=== PATIENT | male | born 1955 | race Caucasian/White ===

== ENCOUNTER 2020-02-02 09:58 | Outpatient (CLI) | payer MEDICARE, OTHER, SELFPAY ==
--- NOTE | ~2020-02-02 | XR_ITS ---
XR chest 2V DATE: 02/02/2020 11:08 INDICATION: Amiodarone therapy TECHNIQUE: PA and lateral views COMPARISON: 08/01/2018 two-view chest FINDINGS: Normal heart size. No hilar or mediastinal enlargement. No pulmonary infiltrate or consolid ation, pleural effusion or pulmonary vascular congestion or pneumothorax. Dextroscoliosis and degenerative spurring of the thoracic spine. There is evidence of chronic ravinder rebecca fracture deformities of the thoracic spine. IMPRESSION: No active cardiopulmonary disease Reviewed, dictated and finalized at location B. ANALYST
--- NOTE | 2020-02-03 11:16 | WPDPFTINT ---
PFT Interpretation PFT Interpretation: This PFT met all criteria for ATS standards and reproducibility FEV/FVC post bronchodilator 73% of predicted FEV1 81% of predicted FVC 77% of predicted TLC 92% of predicted RV 105% RV/TLC 43% DLCO 89% of predicted when adjusted for alveolar volume but not adjusted for hemoglobin Flow volume loops showed some end expiratory coving Impression: Possible small airway obstruction. Would recommend repeating with bronchodilator challenge or methacholine challenge testing if clinically indicated.
== END 2020-02-02 09:59 | disposition home or self-care (01) ==
PROVIDERS: PCP Family Medicine; Visit Provider Internal Medicine Cardiovascular Disease
DX: Z91.89 Other specified personal risk factors, not elsewhere classified (principal); Z79.899 Other long term (current) drug therapy
CPT/HCPCS: 71046; 94375; 94726; 94729

== ENCOUNTER 2020-02-07 08:32 | Outpatient (CLI) | payer MEDICARE, OTHER, SELFPAY ==
[2020-02-07 09:44] LABS: Thyroid Stimulating Hormone 0.515 uIU/mL (0.465-4.680)
[2020-02-07 09:51] LABS: Free T4 Free Thyroxine 1.97 ng/mL (0.78-2.19)
== END 2020-02-07 08:33 | disposition home or self-care (01) ==
PROVIDERS: PCP Family Medicine; Visit Provider Internal Medicine Cardiovascular Disease
DX: Z91.89 Other specified personal risk factors, not elsewhere classified (principal); Z79.899 Other long term (current) drug therapy
CPT/HCPCS: 36415; 84439; 84443

== ENCOUNTER 2020-06-05 07:27 | Outpatient (CLI) | payer MEDICARE, OTHER, SELFPAY ==
[2020-06-05 07:51] LABS: Basophils Absolute Auto 0.2 K/mm3 (0.0-0.1); Basophils Percent Auto 1.4 % (0.2-1.2); Eosinophils Absolute Auto 0.3 K/mm3 (0-0.3); Eosinophils Percent Auto 2.7 % (0-4.4); Hematocrit 52.2 % (42.0-52.0); Immature Granulocyte Absolute 0.07 K/mm3 (0.00-0.031); Immature Granulocyte Percent A 0.7 % (0-0.5); Lymphocytes Absolute Auto 2.34 K/mm3 (0.9-3.2); Lymphocytes Percent Auto 22.2 % (18.3-44.2); Mean Corpuscular HGB Conc 34.5 g/dl (32-36); Mean Corpuscular Hemoglobin 31.2 pg (26-34); Mean Corpuscular Volume 90.5 fl (80-100); Monocytes Absolute Auto 0.9 K/mm3 (0.1-0.6); Monocytes Percent Auto 8.9 % (2.6-8.5); Neutrophils Absolute Auto 6.8 K/mm3 (1.3-6.7); Neutrophils Percent Auto 64.1 % (45.5-73.1); Platelet Count Result 291 k/mm3 (150-375); Red Blood Count 5.77 M/mm3 (4.6-6.20); Red Cell Distribution Width 12.1 % (11.5-14.5); White Blood Count 10.5 K/mm3 (4.5-10.0)
[2020-06-05 08:00] LABS: Hemoglobin A1C 9.5 % (<5.7)
[2020-06-05 08:30] LABS: Creatinine Urine 249.1 mg/dL
[2020-06-05 08:34] LABS: MALB Creatinine Ratio 3.2 mg/g (0-30); Microalbumin Urine Random 7.9 mg/L (0-16.7)
[2020-06-05 08:58] LABS: Alanine Aminotransferase 39 U/L (4-50); Albumin Level 4.5 g/dL (3.5-5.1); Alkaline Phosphatase 96 U/L (38-126); Aspartate Amino Transferase 34 U/L (17-59); Bilirubin,Total 0.8 mg/dL (0.2-1.3); Blood Urea Nitrogen 23 mg/dL (9-20); Calcium 9.5 mg/dL (8.4-10.2); Carbon Dioxide 26 mmol/L (22-30); Chloride 100 mmol/L (98-107); Cholesterol 230 mg/dL (0-200); Estimated Glomerular Filt Rate 55; Glucose 219 mg/dL (75-110); HDL Direct 39 mg/dL; Potassium 4.7 mmol/L (3.4-5.0); Sodium 137 mmol/L (137-145); Triglycerides 154 mg/dL (<150)
[2020-06-05 09:00] LABS: Iron 152 ug/dL (49-181)
[2020-06-05 09:10] LABS: Percent Iron Saturation 43 % (20-50)
[2020-06-05 09:38] LABS: LDL Cholesterol Direct 165 mg/dL
[2020-06-05 09:53] LABS: Free T4 Free Thyroxine 2.19 ng/mL (0.78-2.19)
[2020-06-05 10:06] LABS: Prostate Specific Antigen 0.9 ng/mL (< OR = 4.0)
== END 2020-06-05 07:28 | disposition home or self-care (01) ==
PROVIDERS: PCP Family Medicine; Visit Provider Family Medicine
DX: D64.9 Anemia, unspecified (principal); E11.9 Type 2 diabetes mellitus without complications; E03.9 Hypothyroidism, unspecified; Z12.5 Encounter for screening for malignant neoplasm of prostate
CPT/HCPCS: 36415; 80053; 80061; 82043; 83036; 83540; 83550; 84153; 84439; 84443; 84481; 85025; G0103

== ENCOUNTER 2020-09-18 07:37 | Outpatient (CLI) | payer MEDICARE, OTHER, SELFPAY ==
[2020-09-18 08:06] LABS: Alanine Aminotransferase 56 U/L (4-50); Aspartate Amino Transferase 41 U/L (17-59); Cholesterol 125 mg/dL (0-200); HDL Direct 38 mg/dL; Triglycerides 101 mg/dL (<150)
[2020-09-18 08:14] LABS: LDL Cholesterol Direct 66 mg/dL
== END 2020-09-18 07:38 | disposition home or self-care (01) ==
PROVIDERS: PCP Family Medicine; Visit Provider Internal Medicine Cardiovascular Disease
DX: E78.5 Hyperlipidemia, unspecified (principal); E11.69 Type 2 diabetes mellitus with other specified complication
CPT/HCPCS: 36415; 80061; 84450; 84460

== ENCOUNTER 2021-02-13 10:00 | Outpatient (CLI) | payer MEDICARE, OTHER, SELFPAY ==
--- NOTE | 2021-02-13 12:30 | WPDPFTINT ---
PFT Interpretation This is a pulmonary function test with spirometry, plethysmography and diffusing capacity. The test was performed and results interpreted in accordance with the 2019 and 2005 ATS/ERS Task Force guidelines respectively using the Global Lung Function Initiative-2012 reference equations. Patient demonstrated good effort and cooperation. Reproducibility criteria were suspect. The quality of the spirometry maneuver was Grade D. Findings: Spirometry: The contour the inspiratory and expiratory flow tracing are normal. The FVC is 3.85 L, 91% predicted. The FEV1 is 2.75 L, 85% predicted. The FEV1: FVC ratio 72%. Plethysmography: The total lung capacity is 6.31 L, 93% predicted. The functional residual capacity is 3.01 L, 84% predicted. The residual volume is 2.46 L, 107% predicted. Diffusing capacity: The absolute diffusion capacity is 20.6, 77% predicted. The diffusing capacity corrected for alveolar volume is 3.57, 87% predicted. In comparison to previous pulmonary function test on 02/02/2020 the FVC has increased from 3.35 L to 3.85 L. The FEV1 has increased from 2.43 L to 2.75 L. the total lung capacity is unchanged from 5.86 L to 6.31 L. The functional residual capacity is decreased from 3.74 L to 3.01 L. The residual volume has is unchanged from 2.51L to 2.46 L. The absolute diffusion capacity is unchanged from 20.1 to 20.6. The diffusing capacity corrected for alveolar volume is unchanged from 4.01 to 3.57. Impression: The spirometry is normal without evidence of an obstructive abnormality. The lung volumes are normal. The diffusing capacity is normal. In comparison to previous pulmonary function test on 02/02/2020 there has been a greater than anticipated time dependent increase in FVC and FEV1 with no change in total lung capacity, residual volume, absolute diffusion capacity and diffusing capacity corrected for alveolar volume. There has been a greater than anticipated time dependent decrease in functional residual capacity. Clinical correlation is recommended.
== END 2021-02-13 10:01 | disposition home or self-care (01) ==
PROVIDERS: PCP Family Medicine; Referring Provider Family Medicine; Visit Provider Internal Medicine Cardiovascular Disease
DX: Z91.89 Other specified personal risk factors, not elsewhere classified (principal); Z79.899 Other long term (current) drug therapy
CPT/HCPCS: 94375; 94726; 94729

== ENCOUNTER 2021-02-19 07:10 | Outpatient (CLI) | payer MEDICARE, OTHER, SELFPAY ==
[2021-02-19 08:07] LABS: Alanine Aminotransferase 36 U/L (4-50); Albumin Level 4.3 g/dL (3.5-5.1); Alkaline Phosphatase 85 U/L (38-126); Anion Gap 8 mmol/L (8-16); Aspartate Amino Transferase 33 U/L (17-59); Bilirubin,Total 0.9 mg/dL (0.2-1.3); Blood Urea Nitrogen 24 mg/dL (9-20); Calcium 9.4 mg/dL (8.4-10.2); Carbon Dioxide 27 mmol/L (22-30); Chloride 105 mmol/L (98-107); Estimated Glomerular Filt Rate > 60; Glucose 134 mg/dL (75-110); Potassium 4.2 mmol/L (3.4-5.0); Sodium 140 mmol/L (137-145)
[2021-02-19 08:35] LABS: Thyroid Stimulating Hormone 0.342 uIU/mL (0.465-4.680)
[2021-02-19 08:36] LABS: Free T4 Free Thyroxine 2.37 ng/mL (0.78-2.19)
== END 2021-02-19 07:11 | disposition home or self-care (01) ==
PROVIDERS: PCP Family Medicine; Visit Provider Internal Medicine Cardiovascular Disease
DX: Z51.81 Encounter for therapeutic drug level monitoring (principal); Z79.899 Other long term (current) drug therapy; Z91.89 Other specified personal risk factors, not elsewhere classified
CPT/HCPCS: 36415; 80053; 84439; 84443

== ENCOUNTER 2021-02-26 07:08 | Outpatient (CLI) | payer MEDICARE, OTHER, SELFPAY ==
--- NOTE | ~2021-02-26 | XR_ITS ---
EXAMINATION: XR chest 2V EXAM DATE: 02/26/2021 07:31 INDICATION: At risk for amiodarone toxicity, long-term use. TECHNIQUE: Frontal and lateral projections of the chest obtained and reviewed. Comparison is made to prior examination from 02/02/2020. FINDINGS: The lungs are clear. There are no pleural effusions. The cardiomediastinal silhouette is within normal limits. There is no pneumothorax suspected. There is mild thoracic dextroscoliosis. IMPRESSION: Clear lungs. Reviewed, dictated and finalized at location A. IMPRESSION: Clear lungs.
== END 2021-02-26 07:09 | disposition home or self-care (01) ==
LOC: ANHIMG 07:12
PROVIDERS: PCP Family Medicine; Visit Provider Internal Medicine Cardiovascular Disease
DX: Z91.89 Other specified personal risk factors, not elsewhere classified (principal); Z79.899 Other long term (current) drug therapy
CPT/HCPCS: 71046

== ENCOUNTER 2021-05-20 07:24 | Outpatient (CLI) | payer MEDICARE, OTHER, SELFPAY ==
[2021-05-20 08:20] LABS: Basophils Absolute Auto 0.1 K/mm3 (0.0-0.1); Basophils Percent Auto 1.4 % (0.2-1.2); Eosinophils Absolute Auto 0.3 K/mm3 (0-0.3); Eosinophils Percent Auto 3.1 % (0-4.4); Hematocrit 50.8 % (42.0-52.0); Hemoglobin 17.2 g/dL (14.0-18.0); Immature Granulocyte Absolute 0.03 K/mm3 (0.00-0.031); Immature Granulocyte Percent A 0.3 % (0-0.5); Lymphocytes Absolute Auto 2.14 K/mm3 (0.9-3.2); Lymphocytes Percent Auto 23.6 % (18.3-44.2); Mean Corpuscular HGB Conc 33.9 g/dl (32-36); Mean Corpuscular Hemoglobin 31.2 pg (26-34); Mean Corpuscular Volume 92.2 fl (80-100); Monocytes Absolute Auto 0.8 K/mm3 (0.1-0.6); Monocytes Percent Auto 8.4 % (2.6-8.5); Neutrophils Absolute Auto 5.7 K/mm3 (1.3-6.7); Neutrophils Percent Auto 63.2 % (45.5-73.1); Platelet Count Result 285 k/mm3 (150-375); Red Blood Count 5.51 M/mm3 (4.6-6.20); Red Cell Distribution Width 12.2 % (11.5-14.5); White Blood Count 9.1 K/mm3 (4.5-10.0)
[2021-05-20 08:31] LABS: Cholesterol 148 mg/dL (0-200); HDL Direct 50 mg/dL; Triglycerides 74 mg/dL (<150)
[2021-05-20 08:41] LABS: Hemoglobin A1C 7.5 % (<5.7)
[2021-05-20 08:42] LABS: LDL Cholesterol Direct 67 mg/dL
[2021-05-20 08:58] LABS: Creatinine Urine 225.4 mg/dL
[2021-05-20 09:02] LABS: MALB Creatinine Ratio 2.8 mg/g (0-30); Microalbumin Urine Random 6.4 mg/L (0-16.7)
[2021-05-20 09:13] LABS: Free T4 Free Thyroxine 1.96 ng/mL (0.78-2.19)
== END 2021-05-20 07:25 | disposition home or self-care (01) ==
PROVIDERS: PCP Family Medicine; Visit Provider Internal Medicine Cardiovascular Disease
DX: E11.9 Type 2 diabetes mellitus without complications (principal); D64.9 Anemia, unspecified; Z79.899 Other long term (current) drug therapy; Z91.89 Other specified personal risk factors, not elsewhere classified
CPT/HCPCS: 36415; 80061; 82043; 83036; 84439; 84443; 85025

== ENCOUNTER 2022-02-20 07:18 | Outpatient (CLI) | payer MEDICARE, OTHER, SELFPAY ==
[2022-02-20 07:53] LABS: Basophils Absolute Auto 0.2 K/mm3 (0.0-0.1); Basophils Percent Auto 1.5 % (0.2-1.2); Eosinophils Absolute Auto 0.6 K/mm3 (0-0.3); Eosinophils Percent Auto 6.2 % (0-4.4); Hematocrit 49.5 % (42.0-52.0); Hemoglobin 17.1 g/dL (14.0-18.0); Immature Granulocyte Absolute 0.04 K/mm3 (0.00-0.031); Immature Granulocyte Percent A 0.4 % (0-0.5); Lymphocytes Absolute Auto 2.36 K/mm3 (0.9-3.2); Lymphocytes Percent Auto 24.1 % (18.3-44.2); Mean Corpuscular HGB Conc 34.5 g/dl (32-36); Mean Corpuscular Hemoglobin 31.8 pg (26-34); Mean Platelet Volume 10.9 fl (7.4-10.4); Monocytes Absolute Auto 0.9 K/mm3 (0.1-0.6); Monocytes Percent Auto 8.8 % (2.6-8.5); Neutrophils Absolute Auto 5.8 K/mm3 (1.3-6.7); Platelet Count Result 245 k/mm3 (150-375); Red Blood Count 5.38 M/mm3 (4.6-6.20); Red Cell Distribution Width 12.2 % (11.5-14.5); White Blood Count 9.8 K/mm3 (4.5-10.0)
[2022-02-20 08:04] LABS: Alanine Aminotransferase 40 U/L (4-50); Albumin Level 4.4 g/dL (3.5-5.1); Alkaline Phosphatase 92 U/L (38-126); Anion Gap 5 mmol/L (8-16); Aspartate Amino Transferase 35 U/L (17-59); Bilirubin,Total 1.3 mg/dL (0.2-1.3); Blood Urea Nitrogen 25 mg/dL (9-20); Carbon Dioxide 32 mmol/L (22-30); Chloride 101 mmol/L (98-107); Cholesterol 141 mg/dL (0-200); Estimated Glomerular Filt Rate 51; Glucose 171 mg/dL (65-110); HDL Direct 41 mg/dL; Potassium 4.5 mmol/L (3.4-5.0); Sodium 138 mmol/L (137-145); Triglycerides 94 mg/dL (<150)
[2022-02-20 08:07] LABS: Hemoglobin A1C 7.4 % (<5.7)
[2022-02-20 08:16] LABS: LDL Cholesterol Direct 75 mg/dL
[2022-02-20 08:19] LABS: Creatinine Urine 176.4 mg/dL
[2022-02-20 08:35] LABS: Free T4 Free Thyroxine 1.82 ng/mL (0.78-2.19)
[2022-02-20 08:54] LABS: MALB Creatinine Ratio < 3.4 mg/g (0-30); Microalbumin Urine Random < 6.0 mg/L (0-16.7)
== END 2022-02-20 07:19 | disposition home or self-care (01) ==
PROVIDERS: PCP Family Medicine; Referring Provider Internal Medicine Cardiovascular Disease; Visit Provider Family Medicine
DX: E03.9 Hypothyroidism, unspecified (principal); E11.9 Type 2 diabetes mellitus without complications; D64.9 Anemia, unspecified
CPT/HCPCS: 36415; 80053; 80061; 82043; 83036; 84439; 84443; 85025

== ENCOUNTER 2022-03-04 08:35 | Outpatient (CLI) | payer MEDICARE, OTHER, SELFPAY ==
--- NOTE | ~2022-03-04 | XR_ITS ---
EXAMINATION: XR chest 2V DATE: 03/04/2022 08:51 INDICATION: Long-term amiodarone use. At risk for toxicity. TECHNIQUE: Frontal and lateral views of the chest were obtained. COMPARISON: Chest 2 views 02/26/2021, CT abdomen and pelvis 12/15/2016 FINDINGS: The chest demonstrates clear lungs without pneumonia, pleural effusion, or pneumothorax. Th e heart size is normal. IMPRESSION: 1. No evidence of chronic interstitial lung disease. Reviewed, dictated and finalized at location A.
== END 2022-03-04 08:36 | disposition home or self-care (01) ==
LOC: ANHIMG 08:38
PROVIDERS: PCP Family Medicine; Visit Provider Internal Medicine Cardiovascular Disease
DX: Z51.81 Encounter for therapeutic drug level monitoring (principal); Z79.899 Other long term (current) drug therapy
CPT/HCPCS: 71046

== ENCOUNTER 2023-02-26 07:46 | Outpatient (CLI) | payer MEDICARE, OTHER, SELFPAY ==
--- NOTE | ~2023-02-26 | XR_ITS ---
Clinical Indication: Amiodarone therapy PA and lateral views of the chest: Comparison: 03/04/2022 Findings: The lungs are clear, without evidence of focal consolidation or pleural effusion. Cardiome diastinal silhouette is within normal limits. Bones and soft tissues are unremarkable. Impression: Normal chest. Reviewed, dictated and finalized at location . Impression: Normal chest.
[2023-02-26 08:40] LABS: Alanine Aminotransferase 36 U/L (6-50); Albumin Level 4.4 g/dL (3.5-5.1); Alkaline Phosphatase 103 U/L (38-126); Anion Gap 8 mmol/L (8-16); Aspartate Amino Transferase 31 U/L (17-59); Bilirubin,Total 1.1 mg/dL (0.2-1.3); Blood Urea Nitrogen 23 mg/dL (9-20); Calcium 8.7 mg/dL (8.4-10.2); Carbon Dioxide 29 mmol/L (22-30); Chloride 104 mmol/L (98-107); Cholesterol 141 mg/dL (0-200); Estimated Glomerular Filt Rate 55; Glucose 178 mg/dL (65-110); HDL Direct 40 mg/dL; Potassium 4.3 mmol/L (3.4-5.0); Sodium 141 mmol/L (137-145); Triglycerides 76 mg/dL (<150)
[2023-02-26 08:51] LABS: LDL Cholesterol Direct 81 mg/dL
[2023-02-26 09:05] LABS: Prostate Specific Antigen 1.7 ng/mL (< OR = 4.0)
[2023-02-26 09:20] LABS: Vitamin D 25 Hydroxy 26.1 ng/mL
[2023-02-26 10:21] LABS: Hemoglobin A1C 7.7 % (<5.7)
== END 2023-02-26 07:47 | disposition home or self-care (01) ==
PROVIDERS: PCP Family Medicine; Referring Provider Nurse Practitioner Adult Health; Visit Provider Family Medicine
DX: E03.9 Hypothyroidism, unspecified (principal); E11.9 Type 2 diabetes mellitus without complications; Z79.899 Other long term (current) drug therapy; Z12.5 Encounter for screening for malignant neoplasm of prostate; Z91.89 Other specified personal risk factors, not elsewhere classified
CPT/HCPCS: 36415; 71046; 80053; 80061; 82306; 82607; 83036; 84153; 84443; G0103

== ENCOUNTER 2023-08-13 08:17 | Outpatient (CLI) | payer MEDICARE, OTHER, SELFPAY ==
[2023-08-13 09:18] LABS: Alanine Aminotransferase 32 U/L (6-50); Albumin Level 4.4 g/dL (3.5-5.1); Alkaline Phosphatase 85 U/L (38-126); Anion Gap 10 mmol/L (8-16); Aspartate Amino Transferase 29 U/L (17-59); Bilirubin,Total 1.2 mg/dL (0.2-1.3); Blood Urea Nitrogen 22 mg/dL (9-20); Calcium 8.9 mg/dL (8.4-10.2); Carbon Dioxide 25 mmol/L (22-30); Chloride 103 mmol/L (98-107); Cholesterol 142 mg/dL (0-200); Estimated Glomerular Filt Rate 55; Glucose 189 mg/dL (65-110); HDL Direct 41 mg/dL; Potassium 4.4 mmol/L (3.4-5.0); Sodium 138 mmol/L (137-145); Triglycerides 72 mg/dL (<150)
[2023-08-13 09:29] LABS: LDL Cholesterol Direct 80 mg/dL
[2023-08-13 09:35] LABS: Creatinine Urine 133.3 mg/dL
[2023-08-13 09:46] LABS: MALB Creatinine Ratio < 4.5 mg/g (0-30); Microalbumin Urine Random < 6.0 mg/L (0-16.7)
[2023-08-13 10:04] LABS: Vitamin D 25 Hydroxy 69.3 ng/mL
[2023-08-13 10:10] LABS: Hemoglobin A1C 7.5 % (<5.7)
[2023-08-13 10:23] LABS: Hepatitis C Virus Antibody Negative (Negative)
== END 2023-08-13 08:18 | disposition home or self-care (01) ==
PROVIDERS: PCP Family Medicine; Referring Provider Internal Medicine Cardiovascular Disease; Visit Provider Physician Assistant
DX: E11.9 Type 2 diabetes mellitus without complications (principal); E55.9 Vitamin D deficiency, unspecified; I48.0 Paroxysmal atrial fibrillation; Z11.59 Encounter for screening for other viral diseases
CPT/HCPCS: 36415; 80053; 80061; 82043; 82306; 83036; 86803

== ENCOUNTER 2023-10-05 09:58 | Outpatient (CLI) | payer MEDICARE, OTHER, SELFPAY ==
--- NOTE | 2023-10-05 13:29 | WPDPFTINT ---
PFT Procedure Performed PFT Procedure Performed Plethysmography (Lung Vol) Diffusing Cap (DLCO) Flow Vol Loop Spirometry w/o Bronchodil PFT Interpretation This is a pulmonary function test with spirometry, plethysmography and diffusing capacity. The test was performed and results interpreted in accordance with the 2019 and 2005 ATS/ERS Task Force guidelines respectively using the Global Lung Function Initiative-2012 reference equations. Patient demonstrated good effort and cooperation. Reproducibility criteria were met. The quality of the spirometry maneuver was Grade A. Findings: Spirometry: The contour the inspiratory and expiratory flow tracing are normal. The FVC is 3.80 L, 91% predicted. The FEV1 is 2.59 L, 82% predicted. The FEV1: FVC ratio 68%. Plethysmography: The total lung capacity is 5.88 L, 86% predicted. The functional residual capacity is 2.76 L, 77% predicted. The residual volume is 2.08 L, 88% predicted. Diffusing capacity: The diffusing capacity unadjusted for hemoglobin and carboxyhemoglobin is 19.5, 75% predicted. The diffusing capacity adjusted for alveolar volume is 3.44, 85% predicted. In comparison to previous pulmonary function testing on 02/13/2021 the FVC is unchanged from 3.85 L to 3.80 L. The FEV1 is unchanged from 2.75 L to 2.59 L. The total lung capacity is unchanged from 6.31 L to 5.88 L. The functional residual capacity is unchanged from 3.01 L to 2.76 L. The residual volume is unchanged from 2.46 L to 2.08 L. The diffusing capacity unadjusted for hemoglobin and carboxyhemoglobin is unchanged from 20.6 to 19.5. The diffusing capacity adjusted for alveolar volume is unchanged from 3.57 to 3.44. Impression: The spirometry is normal without evidence of an obstructive abnormality. The lung volumes are normal. The diffusing capacity is normal. In comparison to previous pulmonary function testing on 02/13/2021 there has been no significant change in the FVC, FEV1, total lung capacity, functional residual capacity residual volume or diffusing capacity. Clinical correlation is recommended.
== END 2023-10-05 09:59 | disposition home or self-care (01) ==
PROVIDERS: PCP Family Medicine; Visit Provider Internal Medicine Cardiovascular Disease
DX: Z91.89 Other specified personal risk factors, not elsewhere classified (principal); Z79.899 Other long term (current) drug therapy
CPT/HCPCS: 94375; 94726; 94729

== ENCOUNTER 2024-03-21 07:07 | Outpatient (CLI) | payer MEDICARE, OTHER, SELFPAY ==
[2024-03-21 07:30] LABS: Basophils Absolute Auto 0.1 K/mm3 (0.0-0.1); Basophils Percent Auto 1.6 % (0.2-1.2); Eosinophils Absolute Auto 0.3 K/mm3 (0-0.3); Eosinophils Percent Auto 3.8 % (0-4.4); Hematocrit 50.7 % (42.0-52.0); Hemoglobin 16.7 g/dL (14.0-18.0); Immature Granulocyte Absolute 0.03 K/mm3 (0.00-0.031); Immature Granulocyte Percent A 0.3 % (0-0.5); Lymphocytes Absolute Auto 1.95 K/mm3 (0.9-3.2); Lymphocytes Percent Auto 22.3 % (18.3-44.2); Mean Corpuscular HGB Conc 32.9 g/dl (32-36); Mean Corpuscular Hemoglobin 31.1 pg (26-34); Mean Corpuscular Volume 94.4 fl (80-100); Mean Platelet Volume 10.9 fl (7.4-10.4); Monocytes Absolute Auto 0.7 K/mm3 (0.1-0.6); Monocytes Percent Auto 7.9 % (2.6-8.5); Neutrophils Absolute Auto 5.6 K/mm3 (1.3-6.7); Neutrophils Percent Auto 64.1 % (45.5-73.1); Platelet Count Result 249 k/mm3 (150-375); Red Blood Count 5.37 M/mm3 (4.6-6.20); Red Cell Distribution Width 12.9 % (11.5-14.5); White Blood Count 8.8 K/mm3 (4.5-10.0)
[2024-03-21 07:42] LABS: Alanine Aminotransferase 28 U/L (6-50); Albumin Level 4.3 g/dL (3.5-5.1); Alkaline Phosphatase 86 U/L (38-126); Anion Gap 3 mmol/L (4-12); Aspartate Amino Transferase 25 U/L (17-59); Bilirubin,Total 0.9 mg/dL (0.2-1.3); Blood Urea Nitrogen 17 mg/dL (9-20); Carbon Dioxide 32 mmol/L (22-30); Chloride 102 mmol/L (98-107); Cholesterol 131 mg/dL (0-200); Estimated Glomerular Filt Rate > 60; Glucose 206 mg/dL (65-110); HDL Direct 44 mg/dL; Potassium 4.1 mmol/L (3.4-5.0); Sodium 137 mmol/L (137-145); Triglycerides 99 mg/dL (<150)
[2024-03-21 07:53] LABS: LDL Cholesterol Direct 77 mg/dL
[2024-03-21 08:19] LABS: Creatinine Urine 198.5 mg/dL
[2024-03-21 08:37] LABS: Microalbumin Urine Random < 6.0 mg/L (0-16.7)
[2024-03-21 08:38] LABS: MALB Creatinine Ratio < 3.0 mg/g (0-30)
[2024-03-21 10:26] LABS: Hemoglobin A1C 8.6 % (<5.7)
== END 2024-03-21 07:08 | disposition home or self-care (01) ==
PROVIDERS: PCP Family Medicine; Referring Provider Internal Medicine Cardiovascular Disease; Visit Provider Family Medicine
DX: I42.0 Dilated cardiomyopathy (principal); E11.9 Type 2 diabetes mellitus without complications; I48.0 Paroxysmal atrial fibrillation
CPT/HCPCS: 36415; 80053; 80061; 82043; 83036; 84443; 85025

== ENCOUNTER 2024-07-01 07:39 | Outpatient (CLI) | payer MEDICARE, OTHER, SELFPAY ==
[2024-07-01 08:14] LABS: Basophils Absolute Auto 0.1 K/mm3 (0.0-0.1); Basophils Percent Auto 1.2 % (0.2-1.2); Eosinophils Absolute Auto 0.1 K/mm3 (0-0.3); Eosinophils Percent Auto 1.5 % (0-4.4); Hemoglobin 16.5 g/dL (14.0-18.0); Immature Granulocyte Absolute 0.05 K/mm3 (0.00-0.031); Immature Granulocyte Percent A 0.5 % (0-0.5); Lymphocytes Absolute Auto 1.89 K/mm3 (0.9-3.2); Lymphocytes Percent Auto 19.9 % (18.3-44.2); Mean Corpuscular HGB Conc 33.7 g/dl (32-36); Mean Corpuscular Hemoglobin 31.7 pg (26-34); Mean Corpuscular Volume 94.2 fl (80-100); Mean Platelet Volume 10.7 fl (7.4-10.4); Monocytes Absolute Auto 0.8 K/mm3 (0.1-0.6); Monocytes Percent Auto 8.5 % (2.6-8.5); Neutrophils Absolute Auto 6.5 K/mm3 (1.3-6.7); Neutrophils Percent Auto 68.4 % (45.5-73.1); Platelet Count Result 249 k/mm3 (150-375); White Blood Count 9.5 K/mm3 (4.5-10.0)
[2024-07-01 08:28] LABS: Alanine Aminotransferase 24 U/L (6-50); Albumin Level 4.5 g/dL (3.5-5.1); Alkaline Phosphatase 96 U/L (38-126); Anion Gap 10 mmol/L (4-12); Aspartate Amino Transferase 30 U/L (17-59); Bilirubin,Total 1.1 mg/dL (0.2-1.3); Blood Urea Nitrogen 27 mg/dL (9-20); Calcium 9.2 mg/dL (8.4-10.2); Carbon Dioxide 28 mmol/L (22-30); Chloride 102 mmol/L (98-107); Estimated Glomerular Filt Rate 46; Glucose 180 mg/dL (65-110); Potassium 4.6 mmol/L (3.4-5.0); Sodium 140 mmol/L (137-145)
[2024-07-01 08:37] LABS: Hemoglobin A1C 8.5 % (<5.7)
[2024-07-01 09:00] LABS: Prostate Specific Antigen 1.8 ng/mL (< OR = 4.0)
== END 2024-07-01 07:40 | disposition home or self-care (01) ==
PROVIDERS: PCP Family Medicine; Referring Provider Podiatrist Foot & Ankle Surgery; Visit Provider Student in an Organized Health Care Education/Training Program
DX: Z12.5 Encounter for screening for malignant neoplasm of prostate (principal); E11.9 Type 2 diabetes mellitus without complications; B35.1 Tinea unguium
CPT/HCPCS: 36415; 80053; 83036; 84153; 85025; G0103

== ENCOUNTER 2024-10-01 08:25 | Outpatient (CLI) | payer MEDICARE, OTHER, SELFPAY ==
[2024-10-01 09:46] LABS: Alanine Aminotransferase 29 U/L (6-50); Aspartate Amino Transferase 31 U/L (17-59)
== END 2024-10-01 08:26 | disposition home or self-care (01) ==
PROVIDERS: PCP Family Medicine; Visit Provider Podiatrist Foot & Ankle Surgery
DX: B35.1 Tinea unguium (principal)
CPT/HCPCS: 36415; 84450; 84460

== ENCOUNTER 2024-12-28 07:50 | Outpatient (CLI) | payer MEDICARE, OTHER, SELFPAY ==
--- OUTSIDE RECORDS SUMMARY | 2024-12-28 07:55 | XMS_ITS | Referral Summary ---
Author Organization [facility] [place] [address] [place] [address] [address] [place] [address] Care Team Providers Care Commissary Clerk Name Role Phone Arturo Roth MD Unavailable [phone] Bradley Edward MD Unavailable Luzmaria Shirley MD Primary Care Provider + Encounters Date Type Department Care Team Description 09/29/2024 9:30 AM CDT Office Visit [facility] Cardiology [address] [place] [address] Daina Bean NP PAF (paroxysmal atrial fibrillation) (CMS/HCC) (HCC) (Primary Dx); At risk for amiodarone toxicity with buttermaker continuous churn use; History of GI bleed; Dilated cardiomyopathy (CMS/HCC) (HCC); Essential hypertension from Last 3 Months Allergies No known active allergies Medications pantoprazole DR (PROTONIX) 40 mg EC tablet take 1 tablet by oral route every day 0 0 7 Active Additional Information Patient taking differently:40 mgoral 2 times daily, Reported on 03/16/2023 cyanocobalamin (Vitamin B-12) 1,000 mcg tabletIndicatio ns:Prevention of Vitamin B12 Deficiency Take 1 tablet (1,000 mcg total) by mouth daily Active levothyroxine (SYNTHROID) 50 mcg tablet Take 1 tablet (50 mcg total) by mouth daily 9 Active magnesium gluconate (MAGONATE) 27.5 mg magne- sium (500 mg) tabletIndicatio ns:hypomagnesem ia Take 1 tablet (500 mg total) by mouth every other day Active OneTouch Verio test strips strip USE TO TEST BLOOD SUGARS 1 TIME DAILY 1 Active lisinopriL (PRINIVIL,ZESTR IL) 5 mg tablet TAKE 1 TABLET BY MOUTH TWICE A DAY 180 tablet 3 3 Active glimepiride (AMARYL) 4 mg tablet Take 1 tablet (4 mg total) by mouth daily before breakfast 4 Active terbinafine (LamiSIL) 250 mg tablet Take 1 tablet (250 mg total) by mouth daily 4 Active atorvastatin (LIPITOR) 20 mg tabletIndicatio ns:Hyperlipidem ia associated with type 2 diabetes mellitus (HCC) TAKE 1 TABLET BY MOUTH EVERY DAY 90 tablet 3 4 Active amiodarone (PACERONE) 200 mg tablet TAKE 1 TABLET BY MOUTH EVERY DAY 90 tablet 1 4 Active cholecalciferol (VITAMIN D-3) 2000 unit tablet Active carvediloL (COREG) 3.125 mg tablet TAKE 1 TABLET BY MOUTH TWICE A DAY WITH FOOD 180 tablet 3 4 Active Active Problems Problem Noted Date Diagnosed Date Hyperlipidemia associated with type 2 diabetes m ellitus 07/24/2020 At risk for amiodarone toxicity with half-way u se 01/18/2020 Gastric antral vascular ectasia 08/31/2018 PVC (premature ventricular contraction) 02/26/20 18 PAF (paroxysmal atrial fibrillation) ([facility]) 0 06/18/2017 Dilated cardiomyopathy ([facility]) 06/18/2017 Nonrheumatic mitral valve regurgitation 06/18/20 17 MVP (mitral valve prolapse) 06/18/2017 History of congestive heart failure 06/18/2017 Sinus bradycardia 06/18/2017 Chronic systolic heart failure (CMS/HCC) 017 Overview (04/24/2017): Chronic systolic congestive heart failure Resolved Problems Problem Noted Date Diagnosed Date Resolved Date Nonrheumatic aortic valve insufficiency 07/14/2019 07/14/2019 Chronic anticoagulation 06/18/201706/30 Social History Tobacco Use Types Packs/Day Years Used Date Smoking Tobacco: Never Smokeless Tobacco: Never Tobacco Cessation:Counseling Given: Not Answered Alcohol Use Standard Drinks/Week Comments No 0 (1 standard drink = 0.6 oz pur e alcohol) Personal Safety Answer Date Recorded Getting School Help Needed Not on file 01/17 Sex and Gender Information Value Date Recorded Sex Assigned at Not on file 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 Gender Identity Not on file Sexual Orientation Not on file Last Filed Vital Signs Vital Sign Reading Time Taken Comments Blood Pressure 138/76 09/29/2024 10:07 AM CDT Pulse 57 09/29/2024 9:28 AM CDT Temperature 36.8 ??C (98.2 ??F) 07/17/2020 12:59 PM C DT Respiratory Rate - - Oxygen Saturation 95% 09/29/2024 9:28 AM CDT Inhaled Oxygen Concentration - - Weight 82.1 kg (181 lb) 09/29/2024 9:28 AM CDT Height 177.8 cm (5' 10 ) 09/29/2024 9:28 AM CDT Body Mass Index 25.97 09/29/2024 9:28 AM CDT Plan of Treatment Not on file Procedures Procedure Name Priority Date/Time Associated Diagnosis Comments LIPID PANEL Routine 03/21/2024 COMPREHENSIVE METABOLIC PANEL Routine 08/31/2019 from Last 3 Months or Most Recently Relevant to Health Maintenance Results * Lipid panel (03/21/2024) SCRIBED Cholesterol, Total 131 <200 EXTERNAL LAB SCRIBED HDL 44 >40 EXTERNAL LAB SCRIBED LDL 77 <100 EXTERNAL LAB SCRIBED Triglycerides 99 <150 EXTERNAL LAB Blood 03/21/2024 us Historical Provider LAB BLOOD ORDERABLES Kasia l Result EXTERNAL LAB * Comprehensive metabolic panel (08/31/2019) SCRIBED Sodium 139 N/A mmol/L EXTERNAL LAB SCRIBED Potassium 4.6 N/A mmol/L EXTERNAL LA B SCRIBED Chloride 106 N/A mmol/L EXTERNAL LAB SCRIBED Carbon Dioxide 24 N/A mmol/L EXTERNAL LAB SCRIBED Anion Gap N/A N/A mmol/L EXTERNAL LA B SCRIBED Urea Nitrogen (BUN) 27 N/A mg/dl EXTERNAL LAB SCRIBED Creatinine 1.30 N/A mg/dl EXTERNAL LAB SCRIBED Glucose 138 N/A mg/dl EXTERNAL LAB SCRIBED Calcium 9.2 N/A mg/dl EXTERNAL LAB SCRIBED Bilirubin 0.4 N/A mg/dl EXTERNAL LAB SCRIBED Plasma Protein 7.0 N/A g/dl EXTERNAL LAB SCRIBED Albumin 4.1 N/A g/dl EXTERNAL LAB SCRIBED Alkaline Phosphatase 69 N/A Units/L EXTERNAL LAB SCRIBED Alanine Transaminase (ALT) 42 N/A Units/L EXTERNAL LAB SCRIBED Aspartate Transaminase (AST) 27 N/A Units/L EXTERNAL LAB SCRIBED eGFR in N/A N/A EXTERNAL LAB SCRIBED eGFR in NonAfrican Sri Lankan 56 N/A EXTERNAL LAB Blood specimen (specimen) Historical Provider LAB BLOOD ORDERABLES Edit ed Result - Final EXTERNAL LAB from Last 3 Months or Most Recently Relevant to Health Maintenance [place] [address] [facility] Care Teams Commissary Clerk Relationship Specialty Start Date End Date Luzmaria Shirley MD [address] [place] [address] PCP - General Family Medicine 03/29/24 Arturo Roth MD [address] [facility] [address] [place] [address] Consulting Physician Cardiology 09/17/23 Bradley Edward MD [address] [place] [address] Consulting Physician Cardiology 09/17/23
--- OUTSIDE RECORDS SUMMARY | 2024-12-28 07:55 | XMS_ITS | Clinical Summary ---
Author Organization [facility] [place] [address] Address [address] [place] [address] Care Team Providers Care Metal Casket Maker Name Role Phone Arturo Roth MD Unavailable [phone] Bradley Edward MD Unavailable Luzmaria Shirley MD Primary Care Provider + Allergies No known active allergies Medications pantoprazole [...] 07/24/2020 At risk for amiodarone toxicity with termite treater u se 01/18/2020 Gastric antral vascular ectasia 08/31/2018 PVC (premature ventricular contraction) 02/26/20 18 PAF (paroxysmal atrial fibrillation) (CMS/HCC) 0 06/18/2017 Dilated cardiomyopathy (CMS/HCC) 06/18/2017 Nonrheumatic mitral valve regurgitation 06/18/20 17 MVP (mitral valve prolapse) 06/18/2017 History of congestive heart failure 06/18/2017 Sinus bradycardia 06/18/2017 Chronic systolic heart failure (CMS/HCC) 017 Overview (04/24/2017): Chronic systolic congestive heart failure Resolved Problems Problem Noted Date Diagnosed Date Resolved Date Nonrheumatic aortic valve insufficiency 07/14/2019 07/14/2019 Chronic anticoagulation 06/18/201706/30 Encounters Date Type Department Care Team Description 09/29/2024 9:30 AM CDT Office Visit [facility] Medical [facility] Cardiology [address] [place] [id number] Daina Bean NP PAF (paroxysmal atrial fibrillation) (CMS/HCC) (HCC) (Primary Dx); At risk for amiodarone toxicity with fci use; History of GI bleed; Dilated cardiomyopathy (CMS/HCC) (HCC); Essential hypertension from Last 3 Months Medical History Medical History Date Comments Diabetes mellitus (HCC) Diabetes mellitus Family History Medical History Relation Name Comments Diabetes Brother 2 Heart attack Brother 2 Myocardial infa rction; Cause of : Myocardial infarction Heart attack Father Myocardial infa rction; Suicidality Father Suicide; Cause of : Suicide Diabetes Mother Diabetes mellit us; Heart attack Mother Heart failure Mother Congestive hea rt failure; Cause of : Congestive heart failure Coronary artery disease Sister Heart attack Sister Myocardial infa rction; Relation Name Status Comments Brother 1 (Age 64) Brother 2 Father (Age 40) Mother (Age 71) Sister Social History Tobacco Use Types Packs/Day Years [...] on file 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 Gender Identity Not on file Sexual Orientation Not on file Obstetrics History Last Filed Vital Signs Vital Sign Reading [...] 09/29/2024 9:28 AM CDT Plan of Treatment Health Maintenance Due Date Last Done Comments Albumin Creatinine Ratio, Urine 1954 Colon Cancer Screening-Colonoscopy 1954 Depression Screening 1954 Fall Risk Assessment 1954 Hemoglobin A1C 1954 Hepatitis C Screening 1954 Dilated Eye Exam 1954 Foot Exam 1954 Pneumococcal vaccine 65+ (1 of 2 - PCV) 1960 DTaP/Tdap/Td Vaccine (1 - Tdap) 1965 Hepatitis B Screening 1972 Zoster Vaccine (1 of 2) 2004 Well Visit 65+ 2019 eGFR 08/31/2020 08/31/2019 Influenza Vaccine (#1) 2024 01/30/2020 Lipid Panel 03/21/2025 03/21/2024, 01/30, 02/20/2022, Additional history exists Procedures Procedure Name Priority Date/Time Associated Diagnosis Comments LIPID PANEL Routine 03/21/2024 COMPREHENSIVE METABOLIC PANEL Routine 08/31/2019 from Last 3 Months or Most Recently Relevant to Health Maintenance Results * Lipid panel (03/21/2024) SCRIBED Cholesterol, Total 131 <200 EXTERNAL LAB SCRIBED HDL 44 >40 EXTERNAL LAB SCRIBED LDL 77 <100 EXTERNAL LAB SCRIBED Triglycerides 99 <150 EXTERNAL LAB Blood 03/21/2024 Historical Provider LAB BLOOD ORDERABLES Kasia l [...] N/A EXTERNAL LAB SCRIBED eGFR in NonAfrican Guamanian 56 N/A EXTERNAL LAB Blood specimen (specimen) us Historical Provider LAB BLOOD ORDERABLES Edit ed Result - Final EXTERNAL LAB from Last 3 Months or Most Recently Relevant to Health Maintenance Insurance MEDICARE [facility] MEDICARE [facility] Care Teams Metal Casket Maker Relationship Specialty Start Date End Date Luzmaria Shirley MD [address] [place] [address] PCP - General Family Medicine 03/29/24 Arturo Roth MD [address] [facility] [address] [place] [address] Consulting Physician Cardiology 09/17/23 Bradley Edward MD [address] [facility] [address] [place] [address] Consulting Physician Cardiology 09/17/23
--- OUTSIDE RECORDS SUMMARY | 2024-12-28 07:57 | XMS_ITS | Encounter Summary ---
Author Organization [facility] Address [address] [facility] [address] [place] [address] Care Team Providers Care Tire Changer Name Role Phone Sue Zuluaga MD Primary Care Provider + Isamar Parra DO Primary Care Provider + Luzmaria Shirley MD Primary Care Provider + Arturo Roth MD Unavailable [phone] Isamar Parra DO Primary Care Provider + Bradley Edward MD Unavailable Antione Willson MD Unavailable [phone] Luzmaria Shirley MD Primary Care Provider + Encounter Details Date Type Department Care Team (Late st Contact Info) Description 03/02/2017 Orders Only [facility] ProviderAram MD [address] [place] [address] Social History Tobacco Use Types Packs/Day Years Used Date Smoking Tobacco: Never Alcohol Use Standard Drinks/Week Comments No 0 (1 standard drink = 0.6 oz pur e alcohol) Sex and Gender Information Value Date Recorded Sex Assigned at Not on file 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 us Historical Provider [facility] VENITA LEVI Final Result documented in this encounter Visit Diagnoses Not on filedocumented in this encounter Care Teams Tire Changer Relationship Specialty Start Date End Date Sue Zuluaga MD [address] [facility] [place] [address] PCP - General 02/27/17 02/02/18 Isamar Parra DO [address] [place] [address] PCP - General Family Medicine 02/03/18 03/15/23 Luzmaria Shirley MD [address] [place] [address] PCP - General Family Medicine 03/16/23 09/16/23 Isamar Parra DO [address] [place] [address] PCP - General Family Medicine 09/17/23 03/28/24 Luzmaria Shirley MD [address] [place] [address] PCP - General Family Medicine 03/29/24 Arturo Roth MD [address] [place] [address] Consulting Physician Cardiology 09/17/23 Bradley Edward MD [address] [place] [address] Consulting Physician Cardiology 09/17/23 Antione Willson MD [address] [address] Consulting Physician Gastroenterology 09/23/23 3 documented as of this encounter
--- OUTSIDE RECORDS SUMMARY | 2024-12-28 07:57 | XMS_ITS | Encounter Summary ---
Author Organization [facility] Address [address] [facility] [address] [place] [address] Care Team Providers Care Loss Control Representative Name Role Phone Sue Zuluaga MD Primary Care Provider + Sue Zuluaga MD Primary Care Provider + Isamar Parra DO Primary Care Provider + Luzmaria Shirley MD Primary Care Provider + Arturo Roth MD Unavailable [phone] Isamar Parra DO Primary Care Provider + Bradley Edward MD Unavailable Antione Willson MD Unavailable [phone] Luzmaria Shirley MD Primary Care Provider + Encounter Details Date Type Department Care Team (Late st Contact Info) Description 11/29/2016 Orders Only [facility] ProviderAram MD [address] [place] [address] Social History Tobacco Use Types Packs/Day Years Used Date Smoking Tobacco: Never Assessed Sex and Gender Information Value Date Recorded Sex Assigned at Not on file 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 Historical Provider [facility] PROCE DURES Final Result * CARDIOLOGY REPORT (11/29/2016) Anatomical Region Laterality Modality Other Narrative 11/29/2016 Ordered by an unspecified provider. Historical Provider CV CARDIAC SERVICES PROCE DURES Final Result documented in this encounter Visit Diagnoses Not on filedocumented in this encounter Care Teams Loss Control Representative Relationship Specialty Start Date End Date Sue Zuluaga MD [address] [place] [address] PCP - General 02/27/17 02/02/18 Sue Zuluaga MD [address] [place] [address] PCP - General 12/25/16 02/26/17 Isamar Parra DO [address] [place] [address] PCP - General Family Medicine 02/03/18 03/15/23 Luzmaria Shirley MD [address] [place] [address] PCP - General Family Medicine 03/16/23 09/16/23 Isamar Parra DO [address] [place] [address] PCP - General Family Medicine 09/17/23 03/28/24 Luzmaria Shirley MD [address] [place] [address] PCP - General Family Medicine 03/29/24 Arturo Roth MD [address] [place] [address] Consulting Physician Cardiology 09/17/23 Bradley Edward MD [address] [place] [address] Consulting Physician Cardiology 09/17/23 Antione Willson MD [address] [place] [address] Consulting Physician Gastroenterology 09/23/23 3 documented as of this encounter
--- OUTSIDE RECORDS SUMMARY | 2024-12-28 07:57 | XMS_ITS | Encounter Summary ---
Author Organization [facility] Healthcare Address [address] [place] [address] Care Team Providers Care Registered Nursing Professor Name Role Phone Isamar Parra DO Primary Care Provider + Luzmaria Shirley MD Primary Care Provider + Arturo Roth MD Unavailable [phone] Isamar Parra DO Primary Care Provider + Bradley Edward MD Unavailable Antione Willson MD Unavailable [phone] Luzmaria Shirley MD Primary Care Provider + Encounter Details Date Type Department Care Team (Late st Contact Info) Description 02/06/2018 Orders Only [facility] Health Information Management [address] [place] [address] Scanning, Provider Social History Tobacco Use Types Packs/Day Years Used Date Smoking Tobacco: Never Smokeless Tobacco: Never Alcohol Use Standard Drinks/Week Comments No 0 (1 standard drink = 0.6 oz pur e alcohol) Sex and Gender Information Value Date Recorded Sex Assigned at Not on file 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 Gender Identity Not on file Sexual Orientation Not on file documented as of this encounter Plan of Treatment Not on file documented as of this encounter Procedures Procedure Name Priority Date/Time Associated Diagnosis Comments SCAN - LABS 02/06/2018 1:20 AM ASSEMBLER LAY UPS CARDIOLOGY DOCUMENT SCAN 02/06/2018 1:20 AM ASSEMBLER LAY UPS documented in this encounter Results * SCAN - LABS (02/06/2018 1:20 AM ASSEMBLER LAY UPS) us Provider Scanning Final Result * Cardiology Document Scan (02/06/2018 1:20 AM ASSEMBLER LAY UPS) Anatomical Region Laterality Modality Other us Provider Scanning CV CARDIAC SERVICES PROCEDURES Final Result documented in this encounter Visit Diagnoses Not on filedocumented in this encounter Care Teams Registered Nursing Professor Relationship Specialty Start Date End Date Isamar Parra DO [address] [place] [address] PCP - General Family Medicine 02/03/18 03/15/23 Luzmaria Shirley MD [address] [place] [address] PCP - General Family Medicine 03/16/23 09/16/23 Isamar Parra DO [address] [place] [address] PCP - General Family Medicine 09/17/23 03/28/24 Luzmaria Shirley MD [address] [place] [address] PCP - General Family Medicine 03/29/24 Arturo Roth MD [address] [place] [address] Consulting Physician Cardiology 09/17/23 Bradley Edward MD [address] [place] [address] Consulting Physician Cardiology 09/17/23 Antione Willson MD [address] [place] [address] Consulting Physician Gastroenterology 09/23/23 3 documented as of this encounter
[2024-12-28 08:38] LABS: Alanine Aminotransferase 47 U/L (6-50); Aspartate Amino Transferase 46 U/L (17-59)
== END 2024-12-28 07:51 | disposition home or self-care (01) ==
PROVIDERS: PCP Family Medicine; Visit Provider Podiatrist Foot & Ankle Surgery
DX: B35.1 Tinea unguium (principal)
CPT/HCPCS: 36415; 84450; 84460

== ENCOUNTER 2025-03-28 06:52 | Outpatient (CLI) | payer MEDICARE, OTHER, SELFPAY ==
--- OUTSIDE RECORDS SUMMARY | 2025-03-28 06:55 | XMS_ITS | Encounter Summary ---
Author Organization [facility] Medical Group Address [address] [facility] [address] [place] [address] Care Team Providers Care Security Coordinator Name Role Phone Sue Zuluaga MD Primary Care Provider + Isamar Parra DO Primary Care Provider + Luzmaria Shirley MD Primary Care Provider + Arturo Roth MD Unavailable [phone] Isamar Parra DO Primary Care Provider + Bradley Edward MD Unavailable Antione Willson MD Unavailable [phone] Luzmaria Shirley MD Primary Care Provider + Encounter Details Date Type Department Care Team (Late st Contact Info) Description 03/02/2017 Orders Only [facility] ProviderAram MD [address] [place] [address] Social History Tobacco Use Types Packs/Day Years Used Date Smoking Tobacco: Never Alcohol Use Standard Drinks/Week Comments No 0 (1 standard drink = 0.6 oz pur e alcohol) Sex and Gender Information Value Date Recorded Sex Assigned at Not on file 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 Gender Identity Not on file Sexual Orientation [...] on filedocumented in this encounter Care Teams Security Coordinator Relationship Specialty Start Date End Date Sue Zuluaga MD [address] [facility] [place] [address] PCP - General 02/27/17 02/02/18 Isamar Parra DO [address] [place] [address] PCP - General Family Medicine 02/03/18 03/15/23 Luzmaria Shirley MD [address] [place] [address] PCP - General Family Medicine 03/16/23 09/16/23 Isamar Parra DO [address] [place] [address] PCP - General Family Medicine 09/17/23 03/28/24 Luzmaria Shirley MD [address] [place] [address] PCP - General Family Medicine 03/29/24 Arturo Roth MD [address] [place] [address] Consulting Physician Cardiology 09/17/23 Bradley Edward MD [address] [place] [address] Consulting Physician Cardiology 09/17/23 Antione Willson MD [address] [address] Consulting Physician Gastroenterology 09/23/23 3 documented as of this encounter
--- OUTSIDE RECORDS SUMMARY | 2025-03-28 06:55 | XMS_ITS | Encounter Summary ---
Author Organization [facility] Healthcare Address [address] [place] [address] Care Team Providers Care Global Marketing Coordinator Name Role Phone Isamar Parra DO Primary Care Provider + Luzmaria Shirley MD Primary Care Provider + Arturo Roth MD Unavailable [phone] Isamar Parra DO Primary Care Provider + Bradley Edward MD Unavailable Antione Willson MD Unavailable [phone] Luzmaria Shirley MD Primary Care Provider + Encounter Details Date Type Department Care Team (Late st Contact Info) Description 02/06/2018 Orders Only [facility] Health Information Management [address] [place] [address] Scanning, Provider Social History Tobacco Use Types Packs/Day Years Used Date Smoking Tobacco: Never Smokeless Tobacco: Never Alcohol Use Standard Drinks/Week Comments No 0 (1 standard drink = 0.6 oz pur e alcohol) Sex and Gender Information Value Date Recorded Sex Assigned at Not on file 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 Gender Identity Not on file Sexual Orientation Not on file documented as of this encounter Plan of Treatment Not on file documented as of this encounter Procedures Procedure Name Priority Date/Time Associated Diagnosis Comments SCAN - LABS 02/06/2018 1:20 AM GEOPHYSICAL DRAFTER CARDIOLOGY DOCUMENT SCAN 02/06/2018 1:20 AM GEOPHYSICAL DRAFTER documented in this encounter Results * SCAN - LABS (02/06/2018 1:20 AM GEOPHYSICAL DRAFTER) us Provider Scanning Final Result * Cardiology Document Scan (02/06/2018 1:20 AM GEOPHYSICAL DRAFTER) Anatomical Region Laterality Modality Other us Provider Scanning CV CARDIAC SERVICES PROCEDURES Final Result documented in this encounter Visit Diagnoses Not on filedocumented in this encounter Care Teams Global Marketing Coordinator Relationship Specialty Start Date End Date Isamar Parra DO [address] [place] [address] PCP - General Family Medicine 02/03/18 03/15/23 Luzmaria Shirley MD [address] [place] [address] PCP - General Family Medicine 03/16/23 09/16/23 Isamar Parra DO [address] [place] [address] PCP - General Family Medicine 09/17/23 03/28/24 Luzmaria Shirley MD [address] [place] [address] PCP - General Family Medicine 03/29/24 Arturo Roth MD [address] [place] [address] Consulting Physician Cardiology 09/17/23 Bradley Edward MD [address] [place] [address] Consulting Physician Cardiology 09/17/23 Antione Willson MD [address] [place] [address] Consulting Physician Gastroenterology 09/23/23 3 documented as of this encounter
--- OUTSIDE RECORDS SUMMARY | 2025-03-28 06:55 | XMS_ITS | Clinical Summary ---
Author Organization [facility] [address] Address [address] [place] [address] Care Team Providers Care Carpenter Assembler Name Role Phone Arturo Roth MD Unavailable [phone] Bradley Edward MD Unavailable Luzmaria Shirley MD [...] 07/24/2020 At risk for amiodarone toxicity with gis specialist u se 01/18/2020 Gastric antral vascular ectasia 08/31/2018 PVC (premature ventricular contraction) 02/26/20 18 PAF (paroxysmal atrial fibrillation) 06/18/2017 Dilated cardiomyopathy 06/18/2017 Nonrheumatic mitral valve regurgitation 06/18/20 17 MVP (mitral valve prolapse) 06/18/2017 History of congestive heart failure 06/18/2017 Sinus bradycardia 06/18/2017 Chronic systolic heart failure 03/06/2017 Overview (04/24/2017): Chronic systolic congestive heart failure Resolved Problems Problem Noted Date Diagnosed Date Resolved Date Nonrheumatic aortic valve insufficiency 07/14/2019 07/14/2019 Chronic anticoagulation 06/18/201706/30 Medical History Medical History Date Comments Diabetes [...] on file 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 Gender Identity Not on file Sexual Orientation Not on file Obstetrics History Last Filed Vital Signs Vital Sign Reading Time Taken Comments Blood Pressure 138/76 09/29/2024 10:07 AM CDT Pulse 57 09/29/2024 9:28 AM CDT Temperature 36.8 C (98.2 F) 07/17/2020 12:59 PM CDT Respiratory Rate - - Oxygen Saturation 95% [...] Dilated Eye Exam 1954 Foot Exam 1954 DTaP/Tdap/Td Vaccine (1 - Tdap) 1965 Hepatitis B Screening 1972 Pneumococcal vaccine 65+ (1 of 2 - PCV) 1973 Zoster Vaccine (1 of 2) 2004 Well [...] N/A EXTERNAL LAB SCRIBED eGFR in NonAfrican Monegasque 56 N/A EXTERNAL LAB Blood specimen (specimen) Historical Provider LAB BLOOD ORDERABLES Edit ed Result - Final Performing Organization Address City/[facility]/ZIP Co de Phone Number EXTERNAL LAB from Last 3 Months or Most Recently Relevant to Health Maintenance Insurance MEDICARE MUTUAL [facility] MEDICARE MUTUAL MALVIN LIMON Care Teams Carpenter Assembler Relationship Specialty Start Date End Date Luzmaria Shirley MD [address] [place] [address] PCP - General Family Medicine 03/29/24 Artuor Roth MD [address] [facility] [address] [place] [address] Consulting Physician Cardiology 09/17/23 Bradley Edward MD [address] [place] [address] Consulting Physician Cardiology 09/17/23
--- OUTSIDE RECORDS SUMMARY | 2025-03-28 06:55 | XMS_ITS | Referral Summary ---
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 Gender Identity Not on file Sexual Orientation [...] N/A EXTERNAL LAB SCRIBED eGFR in NonAfrican Tristanian 56 N/A EXTERNAL LAB Blood specimen (specimen) us Historical Provider LAB BLOOD ORDERABLES Edit ed Result - Final EXTERNAL LAB from Last 3 Months or Most Recently Relevant to Health Maintenance Insurance MEDICARE [facility] MEDICARE [facility] Care Teams Mobile Home Servicer Relationship Specialty Start Date End Date Luzmaria Shirley MD [address] [address] [place] [address] PCP - General Family Medicine 03/29/24 Arturo Roth MD [address] [place] [address] Consulting Physician Cardiology 09/17/23 Bradley Edward MD [address] [place] [address] Consulting Physician Cardiology 09/17/23
--- OUTSIDE RECORDS SUMMARY | 2025-03-28 06:55 | XMS_ITS | Encounter Summary ---
Author Organization [facility] Address [address] [facility] [address] [place] [address] Care Team Providers Care Form Setter Steel Pan Forms Name Role Phone Sue Zuluaga MD Primary Care Provider + Sue Zuluaga MD Primary Care Provider + Isamar Parra DO Primary Care Provider + Luzmaria Shirley MD Primary Care Provider + Arturo Roth MD Unavailable [phone] Isamar Parra DO Primary Care Provider + Bradley Edward MD Unavailable Antione Willson MD Unavailable [phone] Luzmaria Shirley MD Primary Care Provider + Encounter Details Date Type Department Care Team (Late st Contact Info) Description 11/29/2016 Orders Only [facility] ProviderAram MD [address] [place] [address] Social History Tobacco Use Types Packs/Day Years Used Date Smoking Tobacco: Never Assessed Sex and Gender Information Value Date Recorded Sex Assigned at Not on file 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 Gender Identity Not on file Sexual Orientation [...] on filedocumented in this encounter Care Teams Form Setter Steel Pan Forms Relationship Specialty Start Date End Date Sue Zuluaga MD [address] [place] [address] PCP - General 02/27/17 02/02/18 Sue Zuluaga MD [address] [place] [address] PCP - General 12/25/16 02/26/17 Isamar Parra DO [address] [place] [address] PCP - General Family Medicine 02/03/18 03/15/23 Luzmaria Shirley MD [address] [place] [address] PCP - General Family Medicine 03/16/23 09/16/23 Isamar Parra DO [address] [place] [address] PCP - General Family Medicine 09/17/23 03/28/24 Luzmaria Shirley MD [address] [place] [address] PCP - General Family Medicine 03/29/24 Arturo Roth MD [address] [place] [address] Consulting Physician Cardiology 09/17/23 Bradley Edward MD [address] [place] [address] Consulting Physician Cardiology 09/17/23 Antione Willson MD [address] [place] [address] Consulting Physician Gastroenterology 09/23/23 3 documented as of this encounter
[2025-03-28 07:43] LABS: Basophils Absolute Auto 0.1 K/mm3 (0.0-0.1); Basophils Percent Auto 1.3 % (0.2-1.2); Eosinophils Absolute Auto 0.2 K/mm3 (0-0.3); Eosinophils Percent Auto 2.7 % (0-4.4); Hematocrit 48.4 % (42.0-52.0); Hemoglobin 15.9 g/dL (14.0-18.0); Immature Granulocyte Absolute 0.04 K/mm3 (0.00-0.031); Immature Granulocyte Percent A 0.5 % (0-0.5); Lymphocytes Absolute Auto 2.04 K/mm3 (0.9-3.2); Lymphocytes Percent Auto 25.8 % (18.3-44.2); Mean Corpuscular HGB Conc 32.9 g/dl (32-36); Mean Corpuscular Hemoglobin 31.2 pg (26-34); Mean Corpuscular Volume 94.9 fl (80-100); Mean Platelet Volume 11.1 fl (7.4-10.4); Monocytes Absolute Auto 0.6 K/mm3 (0.1-0.6); Monocytes Percent Auto 7.6 % (2.6-8.5); Neutrophils Absolute Auto 4.9 K/mm3 (1.3-6.7); Neutrophils Percent Auto 62.1 % (45.5-73.1); Platelet Count Result 229 k/mm3 (150-375); Red Cell Distribution Width 12.9 % (11.5-14.5); White Blood Count 7.9 K/mm3 (4.5-10.0)
[2025-03-28 07:55] LABS: Alanine Aminotransferase 22 U/L (6-50); Albumin Level 4.3 g/dL (3.5-5.1); Alkaline Phosphatase 91 U/L (38-126); Anion Gap 7 mmol/L (4-12); Aspartate Amino Transferase 26 U/L (17-59); Bilirubin,Total 0.7 mg/dL (0.2-1.3); Blood Urea Nitrogen 24 mg/dL (9-20); Calcium 9.2 mg/dL (8.4-10.2); Carbon Dioxide 30 mmol/L (22-30); Chloride 103 mmol/L (98-107); Cholesterol 151 mg/dL (0-200); Estimated Glomerular Filt Rate 56; Glucose 157 mg/dL (65-110); HDL Direct 43 mg/dL; Potassium 4.5 mmol/L (3.4-5.0); Sodium 140 mmol/L (137-145); Triglycerides 82 mg/dL (<150)
[2025-03-28 08:05] LABS: LDL Cholesterol Direct 75 mg/dL
[2025-03-28 08:51] LABS: Creatinine Urine 122.3 mg/dL
[2025-03-28 08:54] LABS: Hemoglobin A1C 8.3 % (<5.7)
[2025-03-28 08:55] LABS: Vitamin D 25 Hydroxy 39.9 ng/mL
[2025-03-28 09:02] LABS: MALB Creatinine Ratio < 4.9 mg/g (0-30); Microalbumin Urine Random < 6.0 mg/L (0-16.7)
== END 2025-03-28 06:53 | disposition home or self-care (01) ==
PROVIDERS: PCP Family Medicine; Referring Provider Internal Medicine Cardiovascular Disease; Visit Provider Family Medicine
DX: E11.9 Type 2 diabetes mellitus without complications (principal); E78.2 Mixed hyperlipidemia; I48.0 Paroxysmal atrial fibrillation; E55.9 Vitamin D deficiency, unspecified; I42.0 Dilated cardiomyopathy
CPT/HCPCS: 36415; 80053; 80061; 82043; 82306; 83036; 84443; 85025

== ENCOUNTER 2025-04-20 09:09 | Outpatient (CLI) | payer MEDICARE, OTHER, SELFPAY ==
--- NOTE | ~2025-04-20 | XR_ITS ---
Clinical Indication: Amiodarone toxicity PA and lateral views of the chest: Comparison: 02/26/2023 Findings: The lungs are clear, without evidence of focal consolidation or pleural effusion. Cardiome diastinal silhouette is within normal limits. Bones and soft tissues are unremarkable. Impression: Normal chest. Reviewed, dictated and finalized at location . Impression: Normal chest.
--- NOTE | 2025-04-21 09:42 | WPDPFTINT ---
PFT Procedure Performed PFT Procedure Performed Plethysmography (Lung Vol) Diffusing Cap (DLCO) Flow Vol Loop Spirometry w/o Bronchodil PFT Interpretation This is a pulmonary function test with spirometry, plethysmography and diffusing capacity. The test was performed and results interpreted in accordance with the 2019 and 2005 ATS/ERS Task Force guidelines respectively using the Global Lung Function Initiative-2012 reference equations. Patient demonstrated good effort and cooperation. Reproducibility criteria were met. The quality of the spirometry maneuver was Grade A. Findings: Spirometry: The contour the inspiratory and expiratory flow tracing are normal. The FVC is 4.02 L, 94% predicted. The FEV1 is 2.83 L, 88% predicted. The FEV1: FVC ratio 70%. Plethysmography: The total lung capacity is 6.31 L, 90% predicted. The functional residual capacity is 3.15 L, 84% predicted. The residual volume is 2.16 L, 88% predicted. Diffusing capacity: The diffusing capacity unadjusted for hemoglobin and carboxyhemoglobin is 20.3, 78% predicted. The diffusing capacity adjusted for alveolar volume is 3.32, 84% predicted. Impression: The spirometry is normal without evidence of an obstructive abnormality. The lung volumes are normal. The diffusing capacity is normal. There are no prior studies for comparison
== END 2025-04-20 09:10 | disposition home or self-care (01) ==
PROVIDERS: PCP Family Medicine; Visit Provider Internal Medicine Cardiovascular Disease
DX: Z91.89 Other specified personal risk factors, not elsewhere classified (principal); Z79.899 Other long term (current) drug therapy
CPT/HCPCS: 71046; 94375; 94726; 94729